=== PATIENT | female | born 1945 | race Caucasian/White ===

== ENCOUNTER → 2016-12-26 | Outpatient (CLI) | payer MEDICARE, BC | LOC: COL.RAD 07:16 | DX: N28.1 Cyst of kidney, acquired (principal); I70.1 Atherosclerosis of renal artery; Z87.442 Personal history of urinary calculi | CPT/HCPCS: Q9967 ==

== ENCOUNTER → 2018-01-29 | Outpatient (CLI) | payer MEDICARE, BC | LOC: COL.RAD 12:08 | DX: I65.23 Occlusion and stenosis of bilateral carotid arteries (principal); I67.82 Cerebral ischemia; R90.89 Other abnormal findings on diagnostic imaging of central nervous system | CPT/HCPCS: A9585 ==

== ENCOUNTER → 2018-02-25 | Outpatient (CLI) | payer MEDICARE, BC | LOC: COL.RAD 02-11 09:45 | DX: I61.9 Nontraumatic intracerebral hemorrhage, unspecified (principal) | CPT/HCPCS: A9585 ==

== ENCOUNTER 2023-05-01 06:31 | Inpatient (IN) | payer MEDICARE, BC ==
[~2023-05-01] VITALS: Ht 154.9 cm; Wt 62.3 kg
[~2023-05-01 06:31] MED LIST: ASPIRIN 81M81 MG/TA2 PO; ELIQUIS 5MG PO; LIPITOR 40MG TA40 MG PO; NORVASC 10MG10 MG PO; PEPCID 20MG TAB20 MG PO; ROXICODONE 55 MG/TAB PO; TOPROL XL 50MG50 MG PO; TYLENOL 500MG500 MG PO; ULTRAM 50MG TAB50 MG PO
[2023-05-01] MEDS ORDERED: PLAVIX 75MG TAB75 MG PO (09:38)
[2023-05-01 09:40] VITALS: BP 125/100; PULSE 69; TEMP 99.1
[2023-05-01] MEDS ORDERED: TRIAMCINOLONE A15 GM TP (09:40)
[2023-05-01 16:24] VITALS: BP 106/40; PULSE 61; TEMP 97.4
[2023-05-01 17:00] VITALS: BP_SYST 106
[2023-05-01 20:00] VITALS: BP_SYST 150
[2023-05-01 20:35] VITALS: BP 113/56; PULSE 65; TEMP 98.2
[2023-05-01 23:01] VITALS: BP 150/64; PULSE 86; TEMP 98.1
--- NOTE | 2023-05-01 23:46 | NUR ---
pt sitting on side of bed with daughter at bedside, pt alert and oriented x4. pt denies chest pain and shortness of breath at this time. IV in LF is patent, site is clean dry and intact. no remarkable findings on the skin just some slight redness around where the previous IV in the RAC infiltrated. ROSALVA Fuentes notified about pt itching and pt request for Kenalog cream, order placed and verified. pt has no needs, questions or concerns. call light within reach, will continue to monitor.
[2023-05-02] VITALS (10 sets, daily range): BP systolic 118–150; BP diastolic 47–76; PULSE 56–78; TEMP 97.7–98.8
[2023-05-02 06:03] LABS: BASO % 0.3 % (0.0-2.0); EOS # 0.9 K/mm3 (0.0-0.7); EOS % 9.7 % (0.0-4.0); GRAN # 6.9 K/mm3 (1.4-6.5); GRAN % 73.1 % (42.2-75.2); LYMPH # 0.9 K/mm3 (1.2-3.4); LYMPH % 9.8 % (20.0-51.0); MEAN CELL VOLUME 92 fl (80.0-100.0); MEAN CORPUSCULAR HEMOGLOBIN 32 pg (27-31); MEAN CORPUSCULAR HGB CONC 35 g/dl (33.0-37.0); MEAN PLATELET VOLUME 10.6 fl (7.4-10.4); MONO # 0.6 K/mm3 (0.1-0.6); MONO % 6.8 % (1.7-9.3); PLATELET COUNT 151 K/mm3 (130-400); REDCELL DISTRIBUTION WIDTH-CV 12.4 % (11.5-14.5)
[2023-05-02 06:11] LABS: CREATININE, serum 0.8 mg/dL (0.57-1.11); POTASSIUM 3.4 mmol/L (3.5-4.5)
[2023-05-02 06:14] LABS: HEMATOCRIT 34.1 % (37.0-47.0)
--- NOTE | 2023-05-02 11:44 | NUR ---
Patient alert and oriented x4 this morning. Shift assessment complete, no new variances noted. Patient is mobile and ambulating frequently. Gait steady, but body jerks noted at random. Physician aware. Jerks/twitches occur at rest when standing and sitting, patient unable to control them. Tolerating food and fluids well. Magnesium replaced x1 and potassium replaced x3. LR currently running at 75/hr. Patient in recliner at this time with call light in reach and visitor at side.
[2023-05-02] MEDS ORDERED: OSCAL 500 TAB500 MG PO (14:01)
[2023-05-02] MEDS ORDERED: VITAMIN D 400400 IU PO (14:01)
[2023-05-02] MEDS ORDERED: ATARAX 25MG25 MG/TAB PO (14:02)
--- NOTE | 2023-05-02 14:33 | NUR ---
Patient off unit at this time for EEG. Patient remains stable, VS per baseline. Orthostatic BP obtained, noted decrease from 130s to 120s in SBP from sitting to standing/supine. Family visiting in room.
--- NOTE | 2023-05-02 19:38 | NUR ---
Patient remains stable. Ambulating often, gait is steady. Patient showered and tolerated cares well. IV site noted to leak fluid, site re-dressed and was then patent. Family at bedside. Patient tolerating food well but admits to low appetite. Patient handoff complete to shift nurse manager at this time.
--- NOTE | 2023-05-02 23:13 | NUR ---
patient is lying in bed alert and oriented x 4. pt daughter at bedside. pt denies chest pain and shortness of breath at this time. IV in LF is patent and site is clean dry and intact. IV fluids were discontinued per orders. no remarkable skin findings upon assessment. pt has no further needs, questions, or concerns at this time. call light within reach, will continue to monitor.
[2023-05-03 00:13] VITALS: BP_SYST 118
--- NOTE | 2023-05-03 00:20 | NUR ---
0020, tele call stating pt had several beats of possible vtach or afib RVR that resolved on its own. ROSALVA Fuentes notified, pt is asymptomatic and we will continue to monitor at this time.
[2023-05-03 03:54] VITALS: BP 124/63; PULSE 64
[2023-05-03 04:16] VITALS: BP_SYST 124
[2023-05-03 05:37] LABS: BASO % 0.3 % (0.0-2.0); EOS % 15.8 % (0.0-4.0); GRAN # 3.6 K/mm3 (1.4-6.5); GRAN % 54.8 % (42.2-75.2); HEMOGLOBIN 11.2 g/dl (12.5-16.0); LYMPH # 1.4 K/mm3 (1.2-3.4); LYMPH % 20.5 % (20.0-51.0); MEAN CELL VOLUME 92 fl (80.0-100.0); MEAN CORPUSCULAR HEMOGLOBIN 32 pg (27-31); MEAN CORPUSCULAR HGB CONC 35 g/dl (33.0-37.0); MEAN PLATELET VOLUME 10.6 fl (7.4-10.4); MONO # 0.6 K/mm3 (0.1-0.6); MONO % 8.4 % (1.7-9.3); PLATELET COUNT 139 K/mm3 (130-400); RED BLOOD COUNT 3.46 M/mm3 (4.10-5.30); REDCELL DISTRIBUTION WIDTH-CV 12.3 % (11.5-14.5)
[2023-05-03 05:41] LABS: HEMATOCRIT 31.9 % (37.0-47.0)
[2023-05-03 05:57] LABS: CALCIUM 8.4 mg/dL (8.4-10.2); CREATININE, serum 0.73 mg/dL (0.57-1.11); MAGNESIUM 2.1 mg/dL (1.6-2.6)
[2023-05-03 07:31] VITALS: BP 120/60; PULSE 61; TEMP 97.9
--- NOTE | 2023-05-03 10:10 | NUR ---
Initial visit; Patient and her family thanked Logistics Vice President for looking in on her and offering prayer for God's blessings and rapid and thorough healing.
--- NOTE | 2023-05-03 10:57 | NUR ---
Patient alert and oriented x4 this morning. Shift assessment complete, no new variances noted. Patient reports ongoing twitching movements, physician aware. Patient tearful due to twitches, states she feels she's progressing backwards. Patient comforted. Gait is steady with SBA. Patient reports mild neck pain, warm blanket provided and rolled up to be placed underneath. Patient in recliner with family at bedside, call light within reach.
[2023-05-03 11:48] VITALS: BP 117/63; PULSE 61; TEMP 98.1
--- NOTE | 2023-05-03 13:01 | NUR ---
Zoning Technician met with Patient, , and Daughter at bedside to conduct Care Managment Assessment and discuss discharge planning. Patient lives in [place], [place] with her and is established with PCP Dr. Wilkerson. Patient is covered by [facility] and [facility] for insruance. Patient requests discharge medications be sent to [facility]. Patient states that she was independent with ADL/IADLs prior to admission but feels like she needs to use her walker when she returns home. Patient requests DPOAHC form. provided form. Home Health services were discussed with Patient by Physician. Patient and family states that Patient has strong family supports and decline home health at this time. Discharge Plan: Home with family support.
--- NOTE | 2023-05-03 14:48 | NUR ---
Discharge instructions discussed including follow-up appointments, medications, and education packets. Patient and family verbalized understanding. IV discontinued to left wrist with no complications. Telemetry off. Patient escorted out by staff and family via wheelchair.
== END 2023-05-03 14:50 | disposition home or self-care (01) | DRG 149 ==
LOC: SURG 06:31 → MEDICAL 09:56
PROVIDERS: Hospitalist; Physician Assistant; ADMIT Internal Medicine
DX: R42 Dizziness and giddiness (principal); I47.10 Supraventricular tachycardia, unspecified; R47.9 Unspecified speech disturbances; H93.19 Tinnitus, unspecified ear; G89.29 Other chronic pain; R50.9 Fever, unspecified; I95.9 Hypotension, unspecified; E83.42 Hypomagnesemia; E87.6 Hypokalemia; E04.1 Nontoxic single thyroid nodule; I10 Essential (primary) hypertension; E78.5 Hyperlipidemia, unspecified
CPT/HCPCS: A9575; G0378; G0379; J3475; J7030; J7040; J7120

== ENCOUNTER 2023-10-01 23:16 | Observation (INO) | payer MEDICARE, BC ==
[~2023-10-01] VITALS: Ht 152.4 cm; Wt 61.8 kg
[~2023-10-01 23:16] MED LIST changes: +ATARAX 25MG25 MG/TAB PO; +OSCAL 500 TAB500 MG PO; +PLAVIX 75MG TAB75 MG PO; +TRIAMCINOLONE A15 GM TP; +VITAMIN D 400400 IU PO
[2023-10-01] MEDS ORDERED: Acetaminophen 500 MG TAB PO ONE (23:45)
[2023-10-01 23:49] LABS: BASO % 0.6 % (0.0-2.0); EOS # 0.1 K/mm3 (0.0-0.7); EOS % 1.6 % (0.0-4.0); GRAN # 3.4 K/mm3 (1.4-6.5); GRAN % 49.7 % (42.2-75.2); HEMATOCRIT 37.9 % (37.0-47.0); HEMOGLOBIN 12.9 g/dl (12.5-16.0); LYMPH # 2.5 K/mm3 (1.2-3.4); LYMPH % 37.1 % (20.0-51.0); MEAN CELL VOLUME 94 fl (80.0-100.0); MEAN CORPUSCULAR HEMOGLOBIN 32 pg (27-31); MEAN CORPUSCULAR HGB CONC 34 g/dl (33.0-37.0); MEAN PLATELET VOLUME 10.1 fl (7.4-10.4); MONO # 0.8 K/mm3 (0.1-0.6); MONO % 10.9 % (1.7-9.3); PLATELET COUNT 163 K/mm3 (130-400); RED BLOOD COUNT 4.03 M/mm3 (4.10-5.30); REDCELL DISTRIBUTION WIDTH-CV 11.9 % (11.5-14.5)
[2023-10-02] VITALS (10 sets, daily range): BP systolic 96–156; BP diastolic 55–82; PULSE 64–101; TEMP 97.3–98.6
[2023-10-02 00:01] LABS: ALBUMIN 4.2 gm/dL (3.4-4.8); BILIRUBIN,TOTAL 1.8 mg/dL (0.2-1.2); CALCIUM 9.1 mg/dL (8.4-10.2); CREATININE, serum 0.83 mg/dL (0.57-1.11); POTASSIUM 3.9 mmol/L (3.5-4.5); TOTAL PROTEIN 6.6 gm/dL (6.2-8.1)
[2023-10-02 00:07] LABS: TROPONIN-I 0.013 ng/mL (0.00-0.033)
[2023-10-02] MEDS ORDERED: NS 60 ML IV ONE (01:23)
[2023-10-02] MEDS ORDERED: Iohexol 300 - 100 ML VIAL IV ONE (01:23)
[2023-10-02] MEDS ORDERED: hydrOXYzine HCl 25 MG TAB PO ONE (04:30)
[2023-10-02] MEDS ORDERED: Atorvastatin 40 MG TAB PO SCH ×2 (04:40→21:00)
[2023-10-02] MEDS ORDERED: Melatonin 3 MG TAB PO PRN ×2 (04:45)
[2023-10-02] MEDS ORDERED: Acetaminophen 325 MG TAB PO PRN (04:45)
[2023-10-02] MEDS ORDERED: Ondansetron 4 MG/2 ML VIAL IV PRN (04:45)
--- NOTE | 2023-10-02 08:20 | NUR ---
PT ADMITTED FROM ED WITH CP. PT IS AXOX3. PT IS ON RA. PT DENIES CP OR SOB AT THIS TIME. PT IS SR ON TELE. PT ORIENTED TO ROOM AND FLOOR. PT GIVEN CALL LIGHT AND SHOWN TO CALL FOR ALL NEEDS. WILL KEEP PT NPO UNTIL SEEN BY PROVIDER. PT UPDATED ON PLAN.
[2023-10-02] MEDS ORDERED: Clopidogrel 75 MG TAB PO SCH ×2 (09:00→14:09)
--- NOTE | 2023-10-02 10:43 | NUR ---
1020-PT CALLED STATING SHE WAS HAVING CP. RN WENT TO ROOM. CHEST PAIN LOCATED IN THE EPIGASTRIC REGION AND PT DESCRIBES DULL AND DOES NOT RADIATE. VSS. EKG DONE.
[2023-10-02 13:10] LABS: BASO % 0.3 % (0.0-2.0); EOS # 0.1 K/mm3 (0.0-0.7); GRAN # 8.2 K/mm3 (1.4-6.5); GRAN % 88.8 % (42.2-75.2); HEMATOCRIT 40.9 % (37.0-47.0); HEMOGLOBIN 14.1 g/dl (12.5-16.0); LYMPH # 0.3 K/mm3 (1.2-3.4); LYMPH % 3.7 % (20.0-51.0); MEAN CELL VOLUME 94 fl (80.0-100.0); MEAN CORPUSCULAR HEMOGLOBIN 32 pg (27-31); MEAN CORPUSCULAR HGB CONC 35 g/dl (33.0-37.0); MEAN PLATELET VOLUME 10.7 fl (7.4-10.4); MONO # 0.5 K/mm3 (0.1-0.6); MONO % 5.6 % (1.7-9.3); PLATELET COUNT 187 K/mm3 (130-400); RED BLOOD COUNT 4.35 M/mm3 (4.10-5.30); REDCELL DISTRIBUTION WIDTH-CV 12.1 % (11.5-14.5)
[2023-10-02 13:25] LABS: CALCIUM 9.1 mg/dL (8.4-10.2); CREATININE, serum 0.88 mg/dL (0.57-1.11); POTASSIUM 4.4 mmol/L (3.5-4.5)
[2023-10-02 13:32] LABS: TROPONIN-I 0.014 ng/mL (0.00-0.033)
[2023-10-02] MEDS ORDERED: Triamcinolone 0.1% Cream 15 GM TUBE TP SCH (14:08)
[2023-10-02] MEDS ORDERED: Acetaminophen 500 MG TAB PO PRN (14:15)
[2023-10-02] MEDS ORDERED: hydrOXYzine HCl 25 MG TAB PO PRN (14:15)
--- NOTE | 2023-10-02 14:20 | NUR ---
HAND DEVELOPER CALLED ABOUT ORDER. STATES SHE IS PREFORMING AN ECHO NOW BUT WILL TRY TO COME UP AFTER.
--- NOTE | 2023-10-02 15:58 | NUR ---
Social work student met with patient to discuss discharge planning. Patient's Kishan (ph#:[phone]) and daughter Carlos Manuel Millan at bedside. Patient lives in [place] and sees Dr. Wilkerson for primary care. Patient obtains her medications from [facility] and has no difficulties affording them. Patient reported her DPOA-HC is her daughter Carlos Manuel. Carlos Manuel reported she believes hospital has one on file, but is unsure. Patient is independent with all ADLS and does not use DME. Patient reported she is unable to drive due to her "jerking" and that her family takes her to and from appointments. rice farmworker informed patient about Home Health and gave patient medicare.gov packet. Patient accepted and said she will look through it.
--- NOTE | 2023-10-02 21:00 | NUR ---
Patient resting in bed with family at bedside. Denies any pain or needs at this time. Assessment complete. IV in left forearm flushes easily with no complications. Patient is alert and oriented x4 but conversation is confused. Call light and persoanl items in reach. Bed in low position and bed alarm on.
[2023-10-03] VITALS (12 sets, daily range): BP systolic 96–130; BP diastolic 54–88; PULSE 60–87; TEMP 96.3–97.6
--- NOTE | 2023-10-03 06:20 | NUR ---
Patient resting in bed with eyes closed. Respirations even and unlabored. No signs of pain or distress at this time. No changes over night. Call light and personal items in reach. Bed in low position and bed alarm on.
[2023-10-03 08:04] LABS: CALCIUM 9.1 mg/dL (8.4-10.2); CREATININE, serum 1.3 mg/dL (0.57-1.11); POTASSIUM 4.3 mEq/L (3.5-4.5)
[2023-10-03 08:09] LABS: BASO % 0.4 % (0.0-2.0); EOS # 0.6 K/mm3 (0.0-0.7); EOS % 6.1 % (0.0-4.0); GRAN # 6.2 K/mm3 (1.4-6.5); GRAN % 69.4 % (42.2-75.2); HEMATOCRIT 41.7 % (37.0-47.0); HEMOGLOBIN 13.8 g/dl (12.5-16.0); LYMPH # 1.6 K/mm3 (1.2-3.4); LYMPH % 17.9 % (20.0-51.0); MEAN CELL VOLUME 96 fl (80.0-100.0); MEAN CORPUSCULAR HEMOGLOBIN 32 pg (27-31); MEAN CORPUSCULAR HGB CONC 33 g/dl (33.0-37.0); MEAN PLATELET VOLUME 10.7 fl (7.4-10.4); MONO # 0.5 K/mm3 (0.1-0.6); MONO % 5.9 % (1.7-9.3); PLATELET COUNT 196 K/mm3 (130-400); RED BLOOD COUNT 4.34 M/mm3 (4.10-5.30); REDCELL DISTRIBUTION WIDTH-CV 12.3 % (11.5-14.5)
[2023-10-03] MEDS ORDERED: 1/2 NS 1,000 ML IV SCH (08:45)
--- NOTE | 2023-10-03 08:51 | NUR ---
Social work student met with patient to follow up on Home Health. Patient declined at this time. Social work student informed patient that she can set up Home Health through PCP if changes her mind. Discharge plan: Home
[2023-10-03] MEDS ORDERED: Calcium Carbonate 500 MG TAB PO SCH (09:00)
[2023-10-03] MEDS ORDERED: NORVASC2.5 MG PO (09:12)
[2023-10-03] MEDS ORDERED: Regadenoson 0.08 MG/ML 5 ML SYRINGE IV SCH (11:24)
--- NOTE | 2023-10-03 13:47 | NUR ---
Initial visit; Merissa and her son greeted Retirement Plan Counselor, thanking her for looking in on Merissa. Merissa hoping to be discharged soon, was very interested in Retirement Plan Counselor offering prayer for her healing. Retirement Plan Counselor offered prayer and healing and prays that Merissa is physically able to be discharged.
--- NOTE | 2023-10-03 16:10 | NUR ---
PATIENT RECEIVED DISCHARGE PAPERWORK INCLUDING ALL FOLLOW UP APPOINTMENTS. ACKNOWLEDGED UNDERSTANDING. NO ISSUES. PATIENT IS PLEASANT AND READY TO GO HOME. MANY OF HER CHILDREN AND ARE AT THE BEDSIDE TO HELP HER DISCHARGE. PATIENT IV DISCONTINUED IV TELEMETRY DISCONTINUED.
== END 2023-10-03 16:13 | disposition home or self-care (01) ==
LOC: COL.ER 23:16 → MEDICAL 10-02 04:43
PROVIDERS: Emergency Medicine; Physician Assistant; ADMIT Internal Medicine
DX: I25.119 Atherosclerotic heart disease of native coronary artery with unspecified angina pectoris (principal); R07.9 Chest pain, unspecified; I10 Essential (primary) hypertension; I16.0 Hypertensive urgency; I69.398 Other sequelae of cerebral infarction; R20.0 Anesthesia of skin; G25.5 Other chorea; R79.1 Abnormal coagulation profile; Z79.02 Long term (current) use of antithrombotics/antiplatelets; Z79.899 Other long term (current) drug therapy
CPT/HCPCS: A9500-JZ; G0378; J1920; J2785; Q9967

== ENCOUNTER 2023-11-22 09:30 | Outpatient (RCR) | payer MEDICARE, BC ==
[~2023-11-22 09:30] MED LIST changes: +NORVASC2.5 MG PO
== END 2023-12-07 ==
LOC: MKS.ESL.PT
DX: G25.9 Extrapyramidal and movement disorder, unspecified (principal)